=== PATIENT | female | born 1995 | race Caucasian/White ===

== ENCOUNTER 2017-01-30 13:21 | Observation (INO) | payer BC ==
[2017-01-30] MEDS ORDERED: NS 0.9% 1000 ML* 1,000 ML IV ONE (13:35)
[2017-01-30] MEDS ORDERED: Ketorolac INJ* 30 MG/ML 1 ML VIAL IV PUSH ONE (13:49)
[2017-01-30] MEDS ORDERED: Ondansetron INJ* 2 MG/ML VIAL IV ONE (13:49)
[2017-01-30 14:28] LABS: Hematocrit 38 % (35-47); Hemoglobin 13.2 g/dl (12.0-16.0); Mean Corpuscular HGB Conc 35 g/dl (31-36); Mean Corpuscular Hemoglobin 32 pg (27-31); Mean Corpuscular Volume 91 fL (80-97); Mean Platelet Volume 8 um3 (7.4-10.4); Red Blood Count 4.14 10^6/ul (4.0-5.4); Red Cell Distribution Width 13 % (10.5-15)
[2017-01-30 14:30] LABS: Comments Flag Yes
[2017-01-30 14:53] LABS: Albumin 4.3 g/dL (3.2-5.2); BUN/Creatinine Ratio 16.7 (8-20); Calcium 9.3 mg/dL (8.6-10.3); EGFR African American 162.3 (>60); EGFR Non-African American 126.2 (>60); Globulin 3.7 g/dL (2-4); Total Bilirubin 0.6 mg/dL (0.2-1.0)
[2017-01-30 15:08] LABS: C Reactive Protein 16.87 mg/L (< 5.00); Lipase 22 U/L (11.0-82.0)
[2017-01-30 15:18] LABS: Urine Bacteria Absent (Absent); Urine Bilirubin Negative (Negative); Urine Glucose Negative (Negative); Urine Nitrite Negative (Negative)
--- NOTE | 2017-01-30 15:21 | RAD ---
INDICATION: Right lower quadrant pain COMPARISON: None. TECHNIQUE: Real-time transabdominal and transvaginal ultrasound examination of the female pelvis including grayscale and Doppler color flow imaging. FINDINGS: Uterus: The uterus is normal in size and echogenicity measuring 7.5 x 3.4 x 4.5 cm. The endometrial stripe is smooth and uniform measuring 7 mm in thickness. Ovaries: The right and left ovary measure 4.4 x 3.9 x 3.4 cm and 3.0 x 1.6 x 1.6 cm, respectively. Normal arterial and venous waveforms are identified. Within the right ovary there are 2 anechoic and avascular structures measuring up to 3.1 cm and 2.3 cm, respectively. There is no free fluid in the cul-de-sac. IMPRESSION: Sonographic findings are consistent with right ovarian follicles in a woman of this age in this otherwise normal and age-appropriate pelvic ultrasound.
--- NOTE | 2017-01-30 15:23 | RAD ---
INDICATION: Right lower quadrant pain COMPARISON: None TECHNIQUE: Transverse and longitudinal scans of the right lower quadrant were performed utilizing grayscale and color Doppler imaging. FINDINGS: There is nonvisualization of the appendix. If there is concern of acute appendicitis, suggest surgical referral and/or CT imaging. IMPRESSION: THE APPENDIX IS NOT VISUALIZED.
--- NOTE | 2017-01-30 15:29 | RAD ---
HISTORY: Abdominal pain COMPARISONS: None TECHNIQUE: Multiple transverse and longitudinal ultrasound images were obtained of the right upper quadrant of the abdomen using grayscale and color Doppler imaging. FINDINGS: LIVER: The liver is normal in shape, size, contour, and echogenicity. There are no focal parenchymal masses. There is normal hepatopedal flow of the portal vein on Doppler imaging. BILIARY TREE: There is no intrahepatic or extrahepatic biliary dilatation. The common duct measures 0.4 cm. GALLBLADDER: The gallbladder is well-visualized. There is no cholelithiasis, gallbladder wall thickening, pericholecystic fluid, or sonographic Darling sign. PANCREAS: The head of the pancreas is unremarkable. The tail of the pancreas is not well visualized secondary to overlying bowel gas. RIGHT KIDNEY: The right kidney is normal in shape, size, contour, and echogenicity. There is no hydronephrosis or nephrolithiasis. The right kidney measures 11.6 x 3.9 x 4.8 cm. AORTA AND IVC: The aorta and IVC are unremarkable. FLUID: There are no pleural effusions. There is no free fluid within the hepatorenal recess. OTHER FINDINGS: None. IMPRESSION: NO ACUTE SONOGRAPHIC PATHOLOGY OF THE VISUALIZED PORTION OF THE ABDOMEN.
--- NOTE | 2017-01-30 15:59 | ED ---
Abdominal Pain/Female - HPI Summary HPI Summary: 22 female presents to ED with complaints of RLQ pain, was transferred over from [facility] to rule out appey. Patient states she has had RLQ that began Sunday and has been there since. Yesterday she states pain did increase. Admits to some nausea associated with the pain however has not vomited. Decreased appetite. Denies diarrhea, constipation, blood in stool, urinary symptoms and genitalia symptoms. Patient states LBM was normal and was yesterday. No fever/chills. States movement makes the pain worse. Laying still makes it better. Took advil yesterday with some relief, nothing today. FHx positive for father having appendicitis. No other PMHx. No other complaints at this time. Pain is generalized in lower right/mid abdomen does not radiated elsewhere. - History of Current Complaint Chief Complaint: EDAbdPain Stated Complaint: ABD PAIN Time Seen by Provider: 01/30/17 13:35 Hx Obtained From: Patient Hx Last Menstrual Period: 01/15/17 ?: No Onset/Duration: Sudden Onset Timing: Constant Severity Initially: Mild Severity Currently: Mild Pain Intensity: 5 Pain Scale Used: 0-10 Numeric Location: Discrete At: RLQ, Umbilical Radiates: No Character: Sharp - at times, Dull - aching Aggravating Factor(s): Movement Alleviating Factor(s): Position Associated Signs and Symptoms: Positive: Decreased Appetite, Nausea. Negative: Fever, Back Pain, Constipation, Blood in Stool, Urinary Symptoms, Vaginal Discharge, Vomiting, Diarrhea Allergies/Adverse Reactions: Allergies Allergy/AdvReac Type Severity Reaction Status Date / Time No Known Allergies Allergy Verified 11/27/12 18:28 PMH/Surg Hx/FS Hx/Imm Hx Endocrine/Hematology History: Denies: Hx Diabetes Cardiovascular History: Denies: Hx Hypertension Respiratory History: Denies: Hx Asthma - Surgical History Surgery Procedure, Year, and Place: none - Immunization History Immunizations Up to Date: Yes Infectious Disease History: No Infectious Disease History: Denies: Traveled Outside the [place] in Last 30 Days - Family History Known Family History: Positive: None - Social History Alcohol Use: None Substance Use Type: Reports: None Smoking Status (MU): Never Smoked Tobacco Review of Systems Constitutional: Negative Cardiovascular: Negative Respiratory: Negative Positive: Abdominal Pain, Nausea Neurological: Negative All Other Systems Reviewed And Are Negative: Yes Physical Exam Triage Information Reviewed: Yes Vital Signs On Initial Exam: Initial Vitals Temp Pulse Resp BP Pulse Ox 98.2 F 64 20 120/74 97 01/30/17 13:23 01/30/17 13:23 01/30/17 13:23 01/30/17 13:23 01/30/17 13:23 Vital Signs Reviewed: Yes Appearance: Positive: Well-Appearing, No Pain Distress, Well-Nourished Skin: Positive: Warm, Skin Color Reflects Adequate Perfusion, Dry. Negative: Cold, Cyanosis @, Jaundiced, Pale, Erythema @ Head/Face: Positive: Normal Head/Face Inspection Eyes: Positive: Conjunctiva Clear ENT: Positive: Normal ENT inspection, Hearing grossly normal, Pharynx normal, TMs normal Neck: Positive: Supple, Nontender, No Lymphadenopathy Respiratory/Lung Sounds: Positive: Clear to Auscultation, Breath Sounds Present. Negative: Rales, Rhonchi, Wheezes Cardiovascular: Positive: Normal, RRR, Pulses are Symmetrical in both Upper and Lower Extremities. Negative: Murmur, Rub Abdomen Description: Positive: No Organomegaly, Soft, Guarding, McBurney's Point Tenderness, Other: - rebound tenderness, psoas sign, negative rovsings, negative murphys, tender to palpation of RLQ and right mid/upper quadrant.. Negative: Bruit, CVA Tenderness (R), CVA Tenderness (L), Distended, Peritoneal Signs, Pulsatile Mass Bowel Sounds: Positive: Present, Hypoactive Pelvic Exam: Positive: external exam normal, speculum exam normal, bimanual exam normal, no cerv. motion tender, no masses, discharge - normal white/clear discharge noted, no significant odor appreciated. Negative: active bleeding, tender w/ cervical motion, tender adnexa, tender uterus Musculoskeletal: Positive: Normal, Strength/ROM Intact Neurological: Positive: Normal, Sensory/Motor Intact, Alert, Oriented to Person Place, Time, Normal Gait - [place] Coma Scale Coma Scale Total: 15 Diagnostics - Vital Signs Vital Signs Temp Pulse Resp BP Pulse Ox 01/30/17 15:30 56 103/55 99 01/30/17 15:02 56 97 01/30/17 15:00 112/68 01/30/17 13:23 98.2 F 64 20 120/74 97 - Laboratory Lab Results: Lab Results 10/01/30/17 01/30/17 Range/Units 14:07 14:07 14:07 WBC 11.0 H (3.5-10.8) 10^3/ul RBC 4.14 (4.0-5.4) 10^6/ul Hgb 13.2 (12.0-16.0) g/dl Hct 38 (35-47) % MCV 91 (80-97) fL MCH 32 H (27-31) pg MCHC 35 (31-36) g/dl RDW 13 (10.5-15) % Plt Count 280 (150-450) 10^3/ul MPV 8 (7.4-10.4) um3 Neut % (Auto) 69.2 (38-83) % Lymph % (Auto) 24.7 L (25-47) % [place] % (Auto) 4.8 (1-9) % Eos % (Auto) 0.9 (0-6) % Baso % (Auto) 0.4 (0-2) % Absolute Neuts (auto) 7.6 (1.5-7.7) 10^3/ul Absolute Lymphs (auto) 2.7 (1.0-4.8) 10^3/ul Absolute Monos (auto) 0.5 (0-0.8) 10^3/ul Absolute Eos (auto) 0.1 (0-0.6) 10^3/ul Absolute Basos (auto) 0 (0-0.2) 10^3/ul Absolute Nucleated RBC 0 10^3/ul Nucleated RBC % 0 Sodium (133-145) mmol/L Potassium (3.5-5.0) mmol/L Chloride (101-111) mmol/L Carbon Dioxide (22-32) mmol/L Anion Gap (2-11) mmol/L BUN (6-24) mg/dL Creatinine (0.51-0.95) mg/dL Est GFR ( Amer) (>60) Est GFR (Non-Af Amer) (>60) BUN/Creatinine Ratio (8-20) Glucose (70-100) mg/dL Lactic Acid 0.7 (0.5-2.0) mmol/L Calcium (8.6-10.3) mg/dL Total Bilirubin (0.2-1.0) mg/dL AST (13-39) U/L ALT (7-52) U/L Alkaline Phosphatase (34-104) U/L C-Reactive Protein 16.87 H (< 5.00) mg/L Total Protein (6.4-8.9) g/dL Albumin (3.2-5.2) g/dL Globulin (2-4) g/dL Albumin/Globulin Ratio (1-3) Lipase 22 (11.0-82.0) U/L Beta HCG, Quant < 0.60 mIU/mL Urine Color Urine Appearance Urine pH (5-9) Ur Specific [place] (1.010-1.030) Urine Protein (Negative) Urine Ketones (Negative) Urine Blood (Negative) Urine Nitrate (Negative) Urine Bilirubin (Negative) Urine Urobilinogen (Negative) Ur Leukocyte Esterase (Negative) Urine WBC (Auto) (Absent) Urine RBC (Auto) (Absent) Ur Squamous Epith Cells (Absent) Urine Bacteria (Absent) Urine Glucose (Negative) 01/30/17 01/30/17 Range/Units 14:07 14:45 WBC (3.5-10.8) 10^3/ul RBC (4.0-5.4) 10^6/ul Hgb (12.0-16.0) g/dl Hct (35-47) % MCV (80-97) fL MCH (27-31) pg MCHC (31-36) g/dl RDW (10.5-15) % Plt Count (150-450) 10^3/ul MPV (7.4-10.4) um3 Neut % (Auto) (38-83) % Lymph % (Auto) (25-47) % [place] % (Auto) (1-9) % Eos % (Auto) (0-6) % Baso % (Auto) (0-2) % Absolute Neuts (auto) (1.5-7.7) 10^3/ul Absolute Lymphs (auto) (1.0-4.8) 10^3/ul Absolute Monos (auto) (0-0.8) 10^3/ul Absolute Eos (auto) (0-0.6) 10^3/ul Absolute Basos (auto) (0-0.2) 10^3/ul Absolute Nucleated RBC 10^3/ul Nucleated RBC % Sodium 136 (133-145) mmol/L Potassium 4.0 (3.5-5.0) mmol/L Chloride 103 (101-111) mmol/L Carbon Dioxide 26 (22-32) mmol/L Anion Gap 7 (2-11) mmol/L BUN 10 (6-24) mg/dL Creatinine 0.60 (0.51-0.95) mg/dL Est GFR ( Amer) 162.3 (>60) Est GFR (Non-Af Amer) 126.2 (>60) BUN/Creatinine Ratio 16.7 (8-20) Glucose 85 (70-100) mg/dL Lactic Acid (0.5-2.0) mmol/L Calcium 9.3 (8.6-10.3) mg/dL Total Bilirubin 0.60 (0.2-1.0) mg/dL AST 17 (13-39) U/L ALT 15 (7-52) U/L Alkaline Phosphatase 74 (34-104) U/L C-Reactive Protein (< 5.00) mg/L Total Protein 8.0 (6.4-8.9) g/dL Albumin 4.3 (3.2-5.2) g/dL Globulin 3.7 (2-4) g/dL Albumin/Globulin Ratio 1.2 (1-3) Lipase (11.0-82.0) U/L Beta HCG, Quant mIU/mL Urine Color Yellow Urine Appearance Cloudy Urine pH 6.0 (5-9) Ur Specific [place] 1.024 (1.010-1.030) Urine Protein Negative (Negative) Urine Ketones Negative (Negative) Urine Blood Negative (Negative) Urine Nitrate Negative (Negative) Urine Bilirubin Negative (Negative) Urine Urobilinogen Negative (Negative) Ur Leukocyte Esterase Trace H (Negative) Urine WBC (Auto) Trace(0-5/hpf) (Absent) Urine RBC (Auto) 1+(3-5/hpf) H (Absent) Ur Squamous Epith Cells Present H (Absent) Urine Bacteria Absent (Absent) Urine Glucose Negative (Negative) Result Diagrams: 01/30/17 14:07 01/30/17 14:07 Lab Statement: Any lab studies that have been ordered have been reviewed, and results considered in the medical decision making process. - Ultrasound No standard instances Ultrasound Interpretation: No Acute Changes - transvaginal: Sonographic findings are consistent with right ovarian follicles in a woman of this age in this otherwise normal and age-appropriate pelvic ultrasound. RLQ:There is nonvisualization of the appendix. If there is concern of acute appendicitis, suggest surgical referral and/or CT imaging. RUQ:NO ACUTE SONOGRAPHIC PATHOLOGY OF THE VISUALIZED PORTION OF THE ABDOMEN. Ultrasound Interpretation Completed By: Radiologist Re-Evaluation - Re-Evaluation First Eval Re-Evaluation Time: 16:00 Change: Improved - had relief from medication and fluids. updated on us reports and labs, will get CT. patient agrees and understands Abdominal Pain Fem Course/Dx - Course Course Of Treatment: normal vitals, afebrile. labs obtained and showed elevated WBC and CRP. U/S negative, appendix however was not visualized. obtained cultures, no evidence of infection on exam however will wait for culture results and if treatment is required, will treat at that time. given toradol, fluids and zofran and had signifcant relief. due to labs, PE findings, HPI and FHx will get CT to definitively rule out appey. Patient was signed out to Jordana Ferrer pending CT results at shift change, 530pm. - Diagnoses Differential Diagnosis: Positive: Appendicitis, Constipation, Diverticulitis, Gall Bladder Disease, Irritable Bowel Syndrome, Urinary Tract Infection, Other - muscle strain, STD, monserrat, BV Provider Diagnoses: RLQ abdominal pain Discharge - Discharge Plan Condition: Stable Disposition: OTHER Discharge Disposition Comment: signed out to Jordana Ferrer PA-C at 5:30pm due to shift change, pending CT Referrals: Non Staff,Doctor [Primary Care Provider] -
[2017-01-30] MEDS ORDERED: Iohexol 300* (CONTRAST) 10 ML SDV IV ONE (17:21)
[2017-01-30 17:47] LABS: Trichomonas Source Endocervical (Negative)
--- NOTE | 2017-01-30 18:22 | RAD ---
INDICATION: Right lower quadrant pain COMPARISON: Gallbladder sonogram same date; right lower quadrant sonogram same date; pelvic sonogram same date TECHNIQUE: Axial source images were obtained from the hemidiaphragms to the symphysis pubis following administration of oral and intravenous contrast. 96 mL Omnipaque 300 was utilized. Coronal and sagittal reconstructed images were acquired. Lung bases: The lung bases are clear. Liver: The liver is normal in size. There are no masses. There is no ductal dilatation. Gallbladder: There are no calcified gallstones. There is no evidence of wall thickening or pericholecystic fluid. Spleen: The spleen is normal in size. There are no masses. Pancreas: There is no focal pancreatic mass or ductal dilatation. Adrenal glands: There is no evidence of adrenal mass. Kidneys: The kidneys are normal in size and position. There are prompt nephrograms and there is prompt excretion bilaterally. There are no renal parenchymal masses. There is no evidence of nephrolithiasis. Adenopathy: There is no evidence of adenopathy by size criteria. Fluid collections: There are no free or localized fluid collections. Vessels:There are no significant atherosclerotic changes involving the aorta. There is no focal aneurysm. The iliac vessels are normal in caliber. The IVC appears normal. GI tract: There are no acute CT bowel findings. There is no obstruction. The stomach and small bowel appear normal. The appendix is fluid-filled with mild enhancement. The appendix measures 7 mm. These findings are suspicious for early acute appendicitis. Pelvic organs: The uterus and left adnexa are normal. There are cysts in right ovary. Please for to separate pelvic sonogram report. Bladder: There are no bladder masses. Abdominal and pelvic soft tissues: The extraperitoneal abdominal and pelvic soft tissues appear normal.. Osseous structures: There are no acute osseous findings. Other: None IMPRESSION: 1. CT findings mildly suspicious for early acute appendicitis. Suggest surgical referral as indicated. 2. Right adnexal cyst.
--- NOTE | 2017-01-30 18:51 | ED ---
Progress - Progress Note Progress Note: Pt's CT report reveals "mildly suspicious for early acute appendicitis". Her TVUS reveals follicles of the Rt ovary which are age-appropriate. Discussed w/ Dr. Zurita @ 18:50. Re-Evaluation - Re-Evaluation First Eval Re-Evaluation Time: 16:00 Change: Improved - had relief from medication and fluids. updated on us reports and labs, will get CT. patient agrees and understands Course/Dx - Course Course Of Treatment: normal vitals, afebrile. labs obtained and showed elevated WBC and CRP. U/S negative, appendix however was not visualized. obtained cultures, no evidence of infection on exam however will wait for culture results and if treatment is required, will treat at that time. given toradol, fluids and zofran and had signifcant relief. due to labs, PE findings, HPI and FHx will get CT to definitively rule out appey. Patient was signed out to Jordana Ferrer pending CT results at shift change, 530pm. - Diagnoses Provider Diagnoses: RLQ abdominal pain
[2017-01-30] MEDS ORDERED: Bupivacaine 0.25% SDV* 30 ML ONE (19:17)
[2017-01-30] MEDS ORDERED: ceFOXitin 2 GM IVPREMIX* 2 GM/50 ML BAG ONE (19:29)
--- NOTE | 2017-01-30 19:30 | HP ---
H&P (Free Text) History and Physical: CC: abdominal pain HPI: 22 yo F with abdominal pain that started on Sunday at 11pm. She slept poorly and the pain worsened and localized to the R side. Yesterday she noted pain with any movement. She had anorexia but ate some soup at 7pm. She felt feverish but no chills. She has had no N/V. She has had no diarrhea. She tried TUMS with no relief. This AM she went to work and had a cup off coffee but had to leave as she felt ill. She went to the health center at and was directed to the ED at about 1pm. She was evaluated and had multiple studies including a CT scan that showed acute appendicitis. Surgical consultation was requested by LINDA Lancaster. 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 ROS: 14 point review completed and significant for the above +/-; otherwise - PE: Vital Signs Temp 98.2 F 01/30/17 13:23 Pulse 59 01/30/17 17:00 Resp 20 01/30/17 13:23 BP 96/50 01/30/17 16:00 Pulse Ox 99 01/30/17 17:00 Gen: WDWN F NAD Lungs: CTA B Heart: reg s1s2 Abdomen: ND,soft, tender in RLQ. No rebound or guarding. +Rovsing sx. Ext: warm; no c/c/e; 2+ DP/PT pulses. Laboratory Results - last 24 hr 01/30/17 01/30/17 01/30/17 14:07 14:07 14:07 WBC 11.0 H RBC 4.14 Hgb 13.2 Hct 38 MCV 91 MCH 32 H MCHC 35 RDW 13 Plt Count 280 MPV 8 Neut % (Auto) 69.2 Lymph % (Auto) 24.7 L [place] % (Auto) 4.8 Eos % (Auto) 0.9 Baso % (Auto) 0.4 Absolute Neuts (auto) 7.6 Absolute Lymphs (auto) 2.7 Absolute Monos (auto) 0.5 Absolute Eos (auto) 0.1 Absolute Basos (auto) 0 Absolute Nucleated RBC 0 Nucleated RBC % 0 Sodium Potassium Chloride Carbon Dioxide Anion Gap BUN Creatinine Est GFR ( Amer) Est GFR (Non-Af Amer) BUN/Creatinine Ratio Glucose Lactic Acid 0.7 Calcium Total Bilirubin AST ALT Alkaline Phosphatase C-Reactive Protein 16.87 H Total Protein Albumin Globulin Albumin/Globulin Ratio Lipase 22 Beta HCG, Quant < 0.60 Urine Color Urine Appearance Urine pH Ur Specific [place] Urine Protein Urine Ketones Urine Blood Urine Nitrate Urine Bilirubin Urine Urobilinogen Ur Leukocyte Esterase Urine WBC (Auto) Urine RBC (Auto) Ur Squamous Epith Cells Urine Bacteria Urine Glucose 01/30/17 01/30/17 14:07 14:45 WBC RBC Hgb Hct MCV MCH MCHC RDW Plt Count MPV Neut % (Auto) Lymph % (Auto) [place] % (Auto) Eos % (Auto) Baso % (Auto) Absolute Neuts (auto) Absolute Lymphs (auto) Absolute Monos (auto) Absolute Eos (auto) Absolute Basos (auto) Absolute Nucleated RBC Nucleated RBC % Sodium 136 Potassium 4.0 Chloride 103 Carbon Dioxide 26 Anion Gap 7 BUN 10 Creatinine 0.60 Est GFR ( Amer) 162.3 Est GFR (Non-Af Amer) 126.2 BUN/Creatinine Ratio 16.7 Glucose 85 Lactic Acid Calcium 9.3 Total Bilirubin 0.60 AST 17 ALT 15 Alkaline Phosphatase 74 C-Reactive Protein Total Protein 8.0 Albumin 4.3 Globulin 3.7 Albumin/Globulin Ratio 1.2 Lipase Beta HCG, Quant Urine Color Yellow Urine Appearance Cloudy Urine pH 6.0 Ur Specific [place] 1.024 Urine Protein Negative Urine Ketones Negative Urine Blood Negative Urine Nitrate Negative Urine Bilirubin Negative Urine Urobilinogen Negative Ur Leukocyte Esterase Trace H Urine WBC (Auto) Trace(0-5/hpf) Urine RBC (Auto) 1+(3-5/hpf) H Ur Squamous Epith Cells Present H Urine Bacteria Absent Urine Glucose Negative CT scan images reviewed. Impression: Acute appendicitis. Plan: Laparoscopic appendectomy. Nature of the procedure/I/R/B/A and option of no treatment d/w patient. Risks explained not limited to bleeding, infxn, pain, scarring, blood clots, pneumonia, N/V, visceral injury, open surgery and risks of GETA. All questions answered. She states understanding and agrees to proceed.
[2017-01-30] MEDS ORDERED: Lidocaine 2% PF * 5 ML VIAL ONE (20:26)
[2017-01-30] MEDS ORDERED: fentaNYL* 50 MCG/ML 2 ML VIAL (100 MCG VIAL) ONE ×2 (20:26→21:40)
[2017-01-30] MEDS ORDERED: Cisatracurium* 2 MG/ML MDV 5 ML ONE (20:26)
[2017-01-30] MEDS ORDERED: Propofol* 10 MG/ML 20 ML BTL IV PUSH ONE (21:02)
[2017-01-30] MEDS ORDERED: Glycopyrrolate IV* 0.2 MG/ML 1 ML VIAL ONE (21:15)
[2017-01-30] MEDS ORDERED: Neostigmine Methylsulfate* 2 MG/2 ML SYRINGE ONE (21:15)
[2017-01-30] MEDS ORDERED: Ondansetron INJ* 2 MG/ML VIAL IV PRN (21:19)
[2017-01-30] MEDS ORDERED: HYDROmorphone INJ* 2 MG/ML CARPUJECT SYRINGE IV PRN (21:19)
[2017-01-30] MEDS ORDERED: oxyCODONE/Acetamin 5/325 MG* TAB PO PRN (21:19)
--- NOTE | 2017-01-30 21:19 | SURGPN ---
Brief Operative Note - Surgery Procedures: PRE/POSTOP DX: ACUTE APPENDICITIS PROC: LAP APPENDECTOMY SURG: MECENAS ASSIST: NONE ANES: DANIEL/SUDHA EBL: MIN IVF: 800ML LR SPEC: APPENDIX DRAIN/COMPL: NONE COND: STABLE TO RR, EXTUBATED.
[2017-01-30] MEDS ORDERED: fentaNYL* 50 MCG/ML 2 ML VIAL (100 MCG VIAL) IV PRN (21:25)
[2017-01-30] MEDS: Ibuprofen TAB* 600 MG PO PRN (22:26)
[2017-01-31] MEDS: Ibuprofen TAB* 600 MG PO PRN (08:31)
--- NOTE | 2017-01-31 10:47 | OP ---
CC: [facility]* OPERATIVE REPORT: DATE OF OPERATION: 01/30/17 - Inpatient, room SSU 331-01. DATE OF : 89 SURGEON: Dr. Cortez. EDGE BANDER HAND: None. ANESTHESIOLOGIST: Dr. Hodges. ANESTHESIA: General endotracheal. PRE-OP DIAGNOSIS: Acute appendicitis. POST-OP DIAGNOSIS: Acute appendicitis. OPERATIVE PROCEDURE: Laparoscopic appendectomy. ESTIMATED BLOOD LOSS: Less than 10 mL. IV FLUIDS: 800 mL crystalloids. SPECIMENS: Appendix. DRAINS: None. COMPLICATIONS: None. COUNTS: Instruments, needle, and sponge counts were correct. DESCRIPTION OF PROCEDURE: The patient was brought to the operating room, and placed on the table supine. Sequential compression devices were placed on both lower extremities and general anesthesia was administered. Her abdomen was prepped and draped in the usual sterile fashion and time-out was performed. Local anesthetic was infiltrated into the skin and soft tissue prior to making each incision. Entry to the abdomen was through a transumbilical vertical incision using an open technique. After accessing the peritoneal cavity, a 12 mm trocar was placed and carbon dioxide was insufflated to a pressure of 15 mmHg. Under direct visualization, 5 mm trocars were placed in the suprapubic midline and in the left lower quadrant. Inspection revealed a minimal tearing distal ileum and cecum. The appendix was injected with findings consistent with early acute appendicitis. The appendix was elevated and the appendix and the mesentery of the appendix were divided with a single firing of the Endo-DANIELLE stapler with a 60 mm james cartridge. The appendix was retrieved through the umbilical site. Inspection revealed the staple line to be intact and hemostatic. Inspection of the small bowel was performed from the ileocecal valve proximally and this appeared normal. Inspection of the pelvis revealed normal-appearing uterus and both tubes and ovaries appeared normal. There was some clear straw-colored fluid in the pelvis. The ports were removed under direct visualization and carbon dioxide was released. The umbilicus was closed with #0 Polysorb in a [id number] fashion to approximate the fascia. The skin incisions were closed with 4-0 Monocryl in subcuticular fashion and then DermaFlex was applied to the wounds. The patient tolerated the procedure well, was extubated and transferred to Recovery in stable condition. [id number]/[facility] #: [id number] [facility]
[2017-01-31 12:12] VITALS: BP 96/52
--- NOTE | 2017-01-31 13:55 | PN ---
Progress Note - Progress Note Date of Service: 01/31/17 SOAP: Subjective: Doing very well, ambulatory. Tolerating diet, denies nausea or vomiting. Objective: VSS, afebrile Abdomen soft, NT, ND Incisions C/D/I Assessment: POD#1, s/p laparoscopic appendectomy, doing well. Plan: D/C IV D/C to home
== END 2017-01-31 14:10 | disposition home or self-care (01) ==
LOC: ED 13:21 → OR 19:05 → SSU 22:00
PROVIDERS: ADMIT Surgery; ATTEND Surgery
DX: K35.80 Unspecified acute appendicitis (principal)
CPT/HCPCS: 36415; 74177; 76705; 76830; 80053; 81003; 81015; 83605; 83690; 84702; 85025; 86140; 87086; 87480; 87491; 87510; 87591; 87661; 88304; 96374; 96375; 99283; A9270-GY; G0378; J0694; J1885; J2405; J2704; J3010; Q9967